=== PATIENT | female | born 2005 | race Caucasian/White ===

== ENCOUNTER 2024-06-10 21:52 | Emergency (ER) | payer BC, MEDICAID, SELFPAY ==
[2024-06-10 22:02] VITALS: BP 112/66; PULSE 113; RESP 15; TEMP 36.9; O2SAT 100; BMI 19.5
--- NOTE | 2024-06-10 22:15 | XRR_ITS ---
PROCEDURE INFORMATION: Exam: XR Lumbosacral Spine Exam date and time: 06/10/2024 10:24 PM Age: 19 years old Clinical indication: Patient HX: C/O low back pain. No injury. TECHNIQUE: Imaging protocol: Radiologic exam of the lumbosacral spine. Views: 2 or 3 views. COMPARISON: No relevant prior studies available. FINDINGS: Bones/joints: Normal. No acute fracture. Normal alignment. Soft tissues: Unremarkable. Gastrointestinal tract: Moderate to severe constipation without bowel dilation to indicate obstruction. XR/XR lumbar spine 2-3V* [id number] IMPRESSION: Moderate to severe constipation without bowel dilation to indicate obstruction.
--- NOTE | 2024-06-10 22:27 | ED_ITS ---
HPI - Back Pain/Injury General: Chief Complaint: Back Pain/Injury Stated Complaint: left flank pain into leg and neck Time Seen by Provider: 06/10/24 22:10 History of Present Illness: Patient presents with left-sided low back pain that radiates up her back and down her back into her leg. She does not recall any trauma or overuse, she denies any coughs colds fevers chills nausea vomiting diarrhea constipation pain burning frequency with urination. Patient has never had this pain before. Patient did take some Aleve which did help to do some patient presents to the ER to be further evaluated. Related Data Home Medications Medication Instructions Recorded Confirmed propranolol 60 mg capsule,24 60 mg PO DAILY 10/23/23 10/23/23 hr,extended release riboflavin (vitamin B2) 100 mg 100 mg PO DAILY 10/23/23 10/23/23 tablet Previous Rx's Medication Instructions Recorded prednisone 10 mg tablet 30 mg (3 x 10 mg) PO DAILY 5 days 10/23/23 #15 tabs Allergies Allergy/AdvReac Type Severity Reaction Status Date / Time No Known Allergies Allergy Unverified 06/10/24 22:00 Review of Systems General: Reports: 10 or more systems reviewed and unremarkable except in HPI and below [facility] ED Female Reproductive History: Date of last menstrual period: 05/25/24 Physical Exam Const: COMMON NORMALS: no acute distress, average body habitus, patient oriented x3, no limitations, healthy appearing, alert and well nourished HENMT: COMMON NORMALS: normocephalic, atraumatic, hearing grossly normal bilaterally, external ears normal, Normal external nose present and moist oral mucous membranes HEAD & SCALP: normocephalic and atraumatic NOSE: Normal external nose present EXTERNAL EAR: Yes external ears normal Neck/C-Spine: COMMON NORMALS: full ROM, no lymphadenopathy, supple, no meningeal signs, no JVD and Thyroid normal THYROID: Thyroid normal Chest: COMMONS NORMALS: normal inspection of the chest and normal palpation of entire chest wall Resp: COMMON NORMALS: normal respiratory effort, No retractions, No use of accessory muscles and clear to auscultation bilaterally AUSCULTATION: clear to auscultation bilaterally Cardio: COMMON NORMALS: no JVD, regular rate, regular rhythm, S1 normal heart sound present, S2 normal heart sound present, No gallops present (Cardio), No clicks present (Cardio), No murmurs present (Cardio) and No rub (Cardio) RATE: regular rate RHYTHM: regular rhythm HEART SOUNDS: S1 normal heart sound present and S2 normal heart sound present GI: COMMON NORMALS: Normal to inspection, nondistended, normoactive bowel sounds present, Soft to palpation, non-tender, No hepatosplenomegaly present and no masses PALPATION: Yes Soft to palpation and Yes No hepatosplenomegaly present Extremity: NARRATIVE EXTREMITY EXAM: . Palpate over left paraspinal musculat ure, ropey and tight does reproduce patient's pain. No obvious step-off crepitus or deformity of lumbar spine area. Neuro: COMMON NORMALS: patient oriented x3 SENSORIUM/ORIENTATION: Yes alert MENINGEAL SIGNS: Yes no meningeal signs Course Vital Signs: Vital signs: Vital Signs Temperature 98.4 F 06/10/24 22:02 Pulse Rate 113 H 06/10/24 22:02 Respiratory Rate 15 06/10/24 22:02 Blood Pressure 112/66 06/10/24 22:02 Pulse Oximetry 100 06/10/24 22:02 Oxygen Delivery Me thod Room Air 06/10/24 22:02 MDM - Back Pain/Injury Medical Decision Making UA was negative except for trace leukocyte esterase but no white cells and no bacterial nitrates. Lumbar spine was negative for lumbar issues but showed moderate to severe constipation without bowel, these results were discussed with the patient. Patient be discharged home. Medical Records I reviewed the patient's medical records. Labs I reviewed the patient's lab results. Radiology Impressions Lumbar Spine X-Ray 06/10/24 22:15 IMPRESSION: Moderate to severe constipation without bowel dilation to indicate obstruction. Laboratory Results Urine Color Yellow (Yellow) 06/10/24 22:12 Urine Appearance Clear (CLEAR) 06/10/24 22:12 Urine pH 6.0 (5-7) 06/10/24 22:12 Ur Specific [place] 1.011 (1.005-1.030) 06/10/24 22:12 Urine Protein Negative (Negative) 06/10/24 22:12 Urine Glucose (UA) Negative (Normal) 06/10/24 22:12 Urine Ketones Negative (Negative) 06/10/24 22:12 Urine Blood Negative (Negative) 06/10/24 22:12 Urine Nitrate Negative (Negative) 06/10/24 22:12 Urine Bilirubin Negative (Negative) 06/10/24 22:12 Urine Urobilinogen 1.0 mg/dL (Negative) 06/10/24 22:12 Ur Leukocyte Esterase Trace (Negative) A 06/10/24 22:12 Urine RBC 0-2 /hpf (0-2) 06/10/24 22:12 Urine WBC 0-5 /hpf (0-5) 06/10/24 22:12 Ur Squamous Epith Cells 0-5 /hpf (0-5) 06/10/24 22:12 Amorphous Sediment Not Reportable 06/10/24 22:12 Urine Bacteria Trace /hpf (NONE) 06/10/24 22:12 Hyaline Casts 0-4 /lpf H 06/10/24 22:12 All radiology interpretation(s) finalized by discharge Discharge Plan Discharge Patient Disposition: Home Clinical Impression: Low back pain Qualifiers: Chronicity: acute Back pain laterality: left Sciatica presence: with sciatica Sciatica laterality: sciatica of left side Qualified Code(s): M54.42 - Lumbago with sciatica, left side Condition: Stable Prescriptions: No Action propranolol 60 mg capsule,extended release 24 hr 60 mg PO DAILY riboflavin (vitamin B2) 100 mg tablet 100 mg PO DAILY prednisone 10 mg tablet 30 mg PO DAILY 5 Days Qty: 15 0RF Discharge Orders: Discharge ED (Routine); Ordered 06/10/24 Ordered By: Gregor Virgen Patient Instructions: Acute Low Back Pain (ED), High Fiber Diet (ED) Activity Restrictions/Additional Instructions: Thank you for choosing [facility] for your healthcare needs today. Please realize that you were seen in the emergency department and that we are providing you with an emergency medical screening exam and this may not be a complete and all exclusive of all testing and/or medical workup we may need to determine your element or severity of your illness. It is very important that you follow-up as instructed with your primary care provider or specialist for the additional evaluation and to discuss your medical treatment plan. You may return to the emergency department should you have concerns or if your condition changes or worsens in any way. Coding Level of Care Code ED [employer] for [employer]lic[employer] Martinez
[2024-06-10 22:34] LABS: Bilirubin Urine Negative (Negative); Blood Urine Negative (Negative); Glucose Urine UA Negative (Normal); Ketones Urine Negative (Negative); Leukocyte Esterase Urine Trace (Negative); Nitrate Urine Negative (Negative); Protein Urine Negative (Negative); Specific Gravity, Urine 1.011 (1.005-1.030); Urine Appearance Clear (CLEAR); Urine Color Yellow (Yellow)
[2024-06-10 22:39] LABS: Bacteria Urine Trace /hpf; Hyaline Casts Urine 0-4 /lpf; RBC Urine 0-2 /hpf (0-2); Squamous Epithelial Cell Urine 0-5 /hpf (0-5); WBC Urine 0-5 /hpf (0-5)
== END 2024-06-11 00:07 | disposition home or self-care (01) ==
PROVIDERS: Emergency Provider Emergency Medicine
DX: M54.42 Lumbago with sciatica, left side (principal)
CPT/HCPCS: 72100; 81001; 99284